=== PATIENT | male | born 1985 | race Caucasian/White ===

== ENCOUNTER 2017-04-10 03:40 | Inpatient (IN) | payer OTHER ==
[~2017-04-10] VITALS: Ht 172.7 cm; Wt 67.6 kg
--- NOTE | ~2017-04-10 | HC ---
[facility] [place] [address] CONSULTATION Name: HARIS ALLRED Room #: 209-P [facility] IN M.R.#: [id number] Admission: 04/10/17 Attend Phys: Jhony Caballero DO Discharge: Date of : 85 Report #: [id number] THIS REPORT FOR: //name// CC: FAM physician/PCP Jhony Caballero DATE OF SERVICE: 04/10/2017 REFERRING PROVIDER: Jhony Caballero DO REASON FOR CONSULT: Abdominal pain. HISTORY OF PRESENT ILLNESS: The patient is a 31-year-old male who recently relocated to the [facility] from [place] who has a longstanding history of diverticular disease since age 22. The patient has undergone colonoscopy several years ago with findings of just diverticular changes; however, has had numerous bouts of diverticulitis over the past including 1 prior episode with a microperforation and abscess formation. The patient was scheduled to see me in the office in couple of weeks for elective sigmoid colectomy; however, five days ago developed onset of left lower quadrant pain and diarrhea. The patient presented to the emergency room due to his discomfort where evaluation with labs and a CT scan were obtained. The patient was found to have leukocytosis with sigmoid diverticulitis with a pericolonic diverticular abscess and as such, I have been asked to evaluate. PAST MEDICAL HISTORY: Chronic recurrent diverticulitis and diet-controlled diabetes mellitus. HOME MEDICATIONS: Zyrtec, Motrin, and he has been taking Cipro and Flagyl over the past couple of days that he had from a prior episode. ALLERGIES: To PENICILLINS. FAMILY HISTORY: Reviewed and noncontributory. SOCIAL HISTORY: The patient smokes a 1/4 pack per day and has done so for 17 years, drinks alcohol on special occasions and never to excess and denies illicit drug use. REVIEW OF SYSTEMS: GENERAL: The patient denies nocturnal fevers or chills. HEENT: No change in vision or change in hearing. NECK: No swelling or difficulty swallowing. HEART: No chest pain or palpitations. LUNGS: No cough or shortness of breath. ABDOMEN: Abdominal pain, but no nausea or vomiting. [facility] [address] [place] [address] CONSULTATION Name: HARIS ALLRED Room #: 209-P [facility] IN .R.#: [id number] Admission: 04/10/17 Attend Phys: Jhony Caballero DO Discharge: Date of : 85 Report #: [id number] GENITOURINARY: No dysuria or hematuria. ENDOCRINE: No polyuria or polydipsia. HEMATOLOGIC: No history of bleeding or easy bruising. EXTREMITIES: No history of weakness or limited range of motion. NEUROLOGIC: No history of syncope or near syncopal episodes. SKIN AND INTEGUMENT: No history of abnormal lesions or moles. PSYCHIATRIC: No history of anxiety or depression. PHYSICAL EXAMINATION: VITAL SIGNS: Temperature 98.6, pulse 83, respirations 17, blood pressure 114/69, he stands 5 feet 8 inches tall and weighs 160 pounds. GENERAL: Alert and oriented, in no acute distress. HEENT: Normocephalic, atraumatic. Pupils are equal, round, and reactive to light. NECK: Supple without lymphadenopathy. Trachea midline. HEART: Regular rate and rhythm. LUNGS: Clear to auscultation bilaterally. ABDOMEN: Soft and nondistended. He is tender to palpation in the left lower quadrant, but does not have any overt guarding, rebound, or peritoneal signs or symptoms. GENITOURINARY: Normal external male genitalia. EXTREMITIES: No clubbing, cyanosis, or edema. NEUROLOGIC: Cranial nerves 2-12 are grossly intact. PSYCHIATRIC: Normal mood and affect. SKIN AND INTEGUMENT: No abnormal lesions or moles. LABORATORY AND X-RAY DATA: CBC shows white blood cell count of 14.6 thousand, hemoglobin 15.0, platelets 283,000. Creatinine 0.9. CT scan of the abdomen and pelvis shows sigmoid diverticulitis with pericolonic thickening and stranding as well as a fluid collection measuring 3.5 x 2.5 cm in dimension. ASSESSMENT AND PLAN: A 31-year-old male with chronic recurrent sigmoid diverticulitis with acute exacerbation and likely microperforation with abscess formation on CT scan. I will discuss with interventional radiology the possibility of drainage of this abscess, although upon my review, it looks like it may be intramural. We may need to repeat a CT scan with oral contrast to further evaluate prior to any attempts at drainage. Nonetheless, hopefully he will improve with conservative management in the form of IV antibiotic therapy and bowel rest and provided he improves markedly with conservative therapy from this acute exacerbation, he would necessitate colonoscopy in 4-6 weeks followed by a sigmoid colectomy. All the above was discussed with the patient and he agrees to proceed as outlined. [facility] [address] [place] [address] CONSULTATION Name: HARIS ALLRED Room #: 209-P [facility] IN M.R.#: [id number] Admission: 04/10/17 Attend Phys: Jhony Caballero DO Discharge: Date of : 85 Report #: [id number] I sincerely appreciate this consult. I will follow closely and leave any further recommendations in the patient's chart as appropriate. <ELECTRONICALLY SIGNED> By: Catina Suarez MD, FACS 04/12/1756 Catina Suarez MD, FACS /nt
--- NOTE | ~2017-04-10 | HC ---
[facility] [place] [address] CONSULTATION Name: HARIS ALLRED Room #: 209-P [facility] IN M.R.#: [id number] Admission: 04/10/17 Attend Phys: Jhony Caballero DO Discharge: Date of : 85 Report #: [id number] THIS REPORT FOR: //name// CC: OSBALDO physician/PCP Jhony Caballero TYPE OF REPORT: Infectious diseases consultation. REASON FOR CONSULTATION: I was asked to evaluate concerning diverticular abscess. HISTORY OF PRESENT ILLNESS: The patient was a 31, recently relocated to [place] from [facility]. He has had a history of diverticular disease from his mid 20s. He does have diet-controlled diabetes. He smokes cigarettes. He has had probably five episodes of diverticulitis. He has had a previous colonoscopy. He has been recommended for surgery, but delayed this. Once he relocated to [place], he decided he would pursue surgical intervention and had actually seen Dr. Suarez with a tentative schedule for surgery first week of April. Five days ago, developed onset of left lower quadrant pain associated with liquid stools. No fever or chills. Pain worsened and he presented to the Emergency Room for further evaluation. Here, he had CT scan performed, which showed sigmoid diverticulitis with a pericolonic diverticular abscess. I discussed this further with Interventional Radiology who feels that this is most likely an intramural abscess. ALLERGIES: PENICILLIN. MEDICATIONS: As noted on his MAR, now on meropenem and metronidazole. PAST MEDICAL HISTORY: Diverticulitis and diabetes. FAMILY HISTORY: Noncontributory. SOCIAL HISTORY: He is a smoker of cigarettes. Occasional alcohol use. . REVIEW OF SYSTEMS: Denies any cardiopulmonary or complaints. ALLERGIES: He does have a NICKEL allergy and has a chronic rash to his lower abdomen. PHYSICAL EXAMINATION: VITAL SIGNS: He is afebrile and hemodynamically stable. GENERAL: He is alert and cooperative and pleasant, in no acute distress. HEENT: Unremarkable. NECK: Supple. No adenopathy. LUNGS: Clear. [facility] [address] [place] [address] CONSULTATION Name: HARIS ALLRED Room #: 209-[facility] IN M.R.#: [id number] Admission: 04/10/17 Attend Phys: Jhony Caballero DO Discharge: Date of : 85 Report #: [id number] HEART: Regular, without murmur. ABDOMEN: Soft with very mild tenderness in the left lower quadrant. RECTAL: Not performed. EXTREMITIES: Unremarkable. He does have dermatitis to lower abdomen, right where his belt buckle would dress. LABORATORY STUDIES: Hemoglobin 15; WBC 14.6 and platelet count 283,000. Sodium 138, potassium 4.5, bicarbonate 21, creatinine 0.9 and lipase 78. Liver function test normal. Urinalysis negative. RADIOLOGICAL DATA: CT scan of the abdomen and pelvis showed sigmoid diverticulitis with pericolonic thickening and stranding in the region. There appeared to be a pericolonic or intramural fluid collection 3.5 x 2.5 cm. There was no free air. IMPRESSION: A 31-year old with diverticulitis and abscess. This appears to be contained. After discussion with Interventional Radiology, it will maybe within the colonic wall. He has no peritoneal signs. RECOMMENDATIONS: Due to his PENICILLIN allergy, we will continue with meropenem and reevaluate after further imaging studies tomorrow. He will be given oral contrast again and see if we can get it down into the sigmoid rectal region for further evaluation of this process. If it does appear to be extraluminal, we would drain this area. Otherwise, we would continue with antibiotic therapy to help prevent fistula formation. Control his blood glucose levels. <ELECTRONICALLY SIGNED> By: Avi Fisher MD 04/11/17 1419 [id number] Avi Fisher MD /nt
[2017-04-10 03:47] VITALS: BP 126/84
[2017-04-10] MEDS ORDERED: ZYRTEC10 M4 PO (04:07)
[2017-04-10] MEDS ORDERED: IBUPROFEN 600600 M1 PO (04:07)
[2017-04-10 04:08] LABS: HEMATOCRIT 45.4 % (42.0-52.0); MCH 27.3 pg (26.0-34.0); MCHC 33.1 g/dL (28.0-37.0); MCV 82.5 fL (80.0-100.0); PLATELET COUNT 283 thou/uL (150-400); RDW 12.6 % (10.5-14.5); WBC 14.6 thou/uL (4.0-11.0)
[2017-04-10] MEDS ORDERED: CIPRO500 MG PO (04:10)
[2017-04-10] MEDS ORDERED: FLAGYL500 MG PO (04:10)
[2017-04-10 04:11] LABS: CALCIUM 9.1 mg/dL (8.5-10.1); CREATININE 0.9 mg/dL (0.7-1.3); POTASSIUM 4.5 mmol/L (3.5-5.1)
[2017-04-10 04:12] LABS: MANUAL DIFF YES
[2017-04-10 04:17] LABS: ALBUMIN 3.4 g/dL (3.4-5.0); TOTAL BILIRUBIN 0.8 mg/dL (<0.1-1.0); TOTAL PROTEIN 7.3 g/dL (6.4-8.2)
[2017-04-10 04:44] LABS: ATYPICAL LYMPHS 1 %; TOTAL CELL COUNT 100
[2017-04-10 05:16] LABS: URINE BILIRUBIN NEGATIVE (Negative); URINE BLOOD NEGATIVE (Negative); URINE COLOR YELLOW; URINE GLUCOSE-RANDOM* NEGATIVE (Negative); URINE KETONES NEGATIVE (Negative); URINE LEUKOCYTES-REFLEX NEGATIVE (Negative); URINE PROTEIN (DIPSTICK) NEGATIVE (Negative); URINE SPECIFIC GRAVITY >= 1.030 (1.005-1.035); URINE UROBILINOGEN 0.2 E.U./dl (0.2-1.0)
[2017-04-10 10:52] VITALS: BP 115/69
[2017-04-10 16:00] VITALS: BP 114/69
[2017-04-10 19:50] VITALS: BP 105/67
[2017-04-11 03:16] LABS: ABSOLUTE NEUTROPHILS 4.6 thou/uL (1.4-8.2); EOSINOPHILS 4.4 % (0.0-3.0); HEMATOCRIT 41.7 % (42.0-52.0); HEMOGLOBIN 13.9 gm/dL (14.0-18.0); LYMPHOCYTES 21.4 % (24.0-44.0); MCH 27.4 pg (26.0-34.0); MCHC 33.4 g/dL (28.0-37.0); MCV 82.1 fL (80.0-100.0); PLATELET COUNT 212 thou/uL (150-400); POLYS 61.2 % (36.0-66.0); RBC 5.08 mil/uL (4.50-6.00); RDW 12.5 % (10.5-14.5); WBC 7.6 thou/uL (4.0-11.0)
[2017-04-11 03:18] LABS: MANUAL DIFF NO
[2017-04-11 03:29] LABS: CALCIUM 8.8 mg/dL (8.5-10.1); CREATININE 0.9 mg/dL (0.7-1.3); MAGNESIUM 1.9 mg/dL (1.8-2.4); POTASSIUM 4.2 mmol/L (3.5-5.1)
[2017-04-11 06:46] VITALS: BP 105/67
[2017-04-11 11:34] VITALS: BP 115/78
[2017-04-11 15:18] VITALS: BP 112/75
[2017-04-11 19:54] VITALS: BP 114/77
[2017-04-12 03:16] VITALS: BP 93/65
[2017-04-12 03:39] LABS: BASOPHILS 1.2 % (0.0-2.0); EOSINOPHILS 4.5 % (0.0-3.0); HEMOGLOBIN 14.1 gm/dL (14.0-18.0); LYMPHOCYTES 23.3 % (24.0-44.0); MCH 27.2 pg (26.0-34.0); MCHC 33.6 g/dL (28.0-37.0); MCV 80.9 fL (80.0-100.0); MONOCYTES 10.6 % (1.0-8.0); PLATELET COUNT 244 thou/uL (150-400); POLYS 60.4 % (36.0-66.0); RBC 5.19 mil/uL (4.50-6.00); RDW 12.4 % (10.5-14.5); WBC 6.6 thou/uL (4.0-11.0)
[2017-04-12 03:44] LABS: MANUAL DIFF NO
[2017-04-12 03:48] LABS: CALCIUM 8.9 mg/dL (8.5-10.1); CREATININE 0.9 mg/dL (0.7-1.3); POTASSIUM 3.9 mmol/L (3.5-5.1)
[2017-04-12 07:55] VITALS: BP 109/81
[2017-04-12] MEDS ORDERED: CIPRO500 MG PO (09:23)
[2017-04-12] MEDS ORDERED: FLAGYL500 MG PO (09:24)
[2017-04-12 12:15] VITALS: BP 110/78
[2017-04-12 15:37] VITALS: BP 116/70
[2017-04-12 15:45] VITALS: BP 116/70
== END 2017-04-12 16:45 | disposition home or self-care (01) | DRG 872 ==
LOC: ER 03:40 → EROBS 06:41 → 2N 12:09 → ENTRNSPT 04-12 16:26 → 2N 04-12 16:45
PROVIDERS: Emergency Medicine; Family Medicine; Nurse Practitioner
DX: A41.9 Sepsis, unspecified organism (principal); K57.20 Diverticulitis of large intestine with perforation and abscess without bleeding; E11.9 Type 2 diabetes mellitus without complications; J45.909 Unspecified asthma, uncomplicated; F17.210 Nicotine dependence, cigarettes, uncomplicated; Z23 Encounter for immunization; Z88.0 Allergy status to penicillin; Z88.8 Allergy status to other drugs, medicaments and biological substances
CPT/HCPCS: 10194

== ENCOUNTER → 2017-05-30 | Outpatient (CLI) | payer OTHER ==
[~2017-05-30] VITALS: Ht 170.2 cm; Wt 72.6 kg
[~2017-05-30] MED LIST: CIPRO500 MG PO; FLAGYL500 MG PO; IBUPROFEN 600600 M1 PO; VENTOLIN HFA 1818 GM INH; ZYRTEC10 M4 PO
--- NOTE | ~2017-05-30 | P ---
[facility] [place] [address] PROCEDURE REPORT Name: CHALINOSHAYNE Room #: [facility]#: [id number] Admission: 05/30/17 Attend Phys: Leno Espinosa Discharge: Date of : 85 Report #: [id number] THIS REPORT FOR: //name// CC: Leno Townsend [facility] physician/PCP Catina Suarez MD DATE OF SERVICE: 05/30/2017 PROCEDURE PERFORMED: Colonoscopy. HISTORY OF PRESENT ILLNESS: The patient is a 31-year-old male with a history of recurrent diverticulitis apparently who has had 6 episodes over the years. He is scheduled for partial resection in the near future by Dr. Catina Suarez. He denies any symptoms at this time. Last episode of diverticulitis was treated around [place] of last year. DESCRIPTION OF PROCEDURE: The risks and benefits of the procedure were explained to the patient, those risks including but not limited to bleeding, perforation and the risk of sedation. He understood these risks and gave informed consent. Sedation was given using propofol per anesthesia. Next, a digital rectal exam was initially performed, which was normal. Next, using a standard Fujinon colonoscope, the scope was placed in the patient's anus and advanced under direct vision to the cecum. The overall prep was excellent. The cecum and ileocecal valve were normal in appearance. There was diverticulosis noted scattered throughout the ascending, transverse, descending and sigmoid colon. There was no inflammation, otherwise normal. The rectal mucosa was normal. On retroflexion, no abnormalities were noted. The scope was then withdrawn and the procedure terminated. The patient tolerated the procedure well. IMPRESSION: 1. Centeno diverticulosis. 2. Otherwise, normal colonoscopy. RECOMMENDATIONS: Okay to proceed with surgery. Thank you for allowing me to participate in his care. <ELECTRONICALLY SIGNED> By: Leno Townsend MD 06/01/17 1622 [id number] Leno Townsend MD /nt
== END | disposition home or self-care (01) ==
LOC: GI 09:05
DX: K57.30 Diverticulosis of large intestine without perforation or abscess without bleeding (principal); J45.909 Unspecified asthma, uncomplicated; F17.210 Nicotine dependence, cigarettes, uncomplicated; Z88.0 Allergy status to penicillin
CPT/HCPCS: 62110